=== PATIENT | female | born 1965 | race Caucasian/White ===

== ENCOUNTER 2016-05-22 10:36 | Emergency (ER) | payer BC ==
[~2016-05-22] VITALS: Ht 147.3 cm; Wt 57.0 kg
[~2016-05-22 10:36] MED LIST: GUAISOL PO; HYDR-2768 PO; METO100T PO; MOBI7.5T PO; ZITH250T PO
[2016-05-22 11:02] VITALS: BP 167/109; PULSE 87; RESP 20; TEMP 99.4; O2SAT 95
--- NOTE | 2016-05-22 11:40 | PD ---
HPI Chief Complaint: Respiratory Symptoms Time Seen by Provider: 11:40 Travel History International Travel<30 days: No Contact w/Intl Traveler<30days: No Traveled to known affect area: No History of Present Illness HPI 51-year-old female presents to the emergency Department with complaint of cough and nasal congestion that started yesterday. Denies fever other than the low- grade fever that was taken here in the ER 99.4. Denies nausea, vomiting. Reports cough exacerbations are horrible and she can get him to stop when she starts. Cough is aggravating. Dry cough. Tobacco use daily. History of bronchitis. Denies COPD or asthma. Has tried [id number] cough medications such as Delsym and DayQuil with no relief of symptoms. Reports chest tightness. Denies chest pain, shortness of breath. Denies hemoptysis. Denies ear pain, sore throat. Grandson had flu approximately one week ago. No known allergies. Dr. butler is primary care provider. History of hypertension but doesn't take medications. No other modifying factors or associated signs and symptoms. PFSH Past Medical History Arthritis: Yes Cerebrovascular Accident: Yes Diminished Hearing: No Genitourinary: Yes (HX OF KIDNEY STONES) Hypertension: Yes Kidney Stones: Yes ?: Not Menopausal: Yes Tubal Ligation: Yes Past Surgical History Section: Yes (X 2) Other Surgery: Yes ( LEFT BREAST LUMPECTOMY, CYST REMOVED ON BACK) Social History Alcohol Use: No Tobacco Use: Yes (1/2 PACK PER DAY) Substance Use: No Allergies-Medications (Allergen,Severity, Reaction): Coded Allergies: No Known Allergies (Verified , 05/22/16) Reported Meds & Prescriptions Reported Meds & Active Scripts Active Tessalon Perles (Benzonatate) 100 Mg Cap 100 Mg PO TID PRN Deltasone (Prednisone) 20 Mg Tab 40 Mg PO DAILY 4 Days start 05/23/2016 Proair Hfa 8.5 GM Inh (Albuterol Sulfate) 90 Mcg/Act Aer 2 Puff INH Q4-6H PRN 108 mcg/actuation Review of Systems Except as stated in HPI: all other systems reviewed are Neg Physical Exam Narrative GENERAL: Well-nourished, well-developed female patient, in no acute distress SKIN: Warm and dry. HEAD: Atraumatic. Normocephalic. EYES: Pupils equal and round. No scleral icterus. No injection or drainage. ENT: Mucosa pink and moist. No erythema or exudates. No uvular edema. No uvular , palatal, or tonsillar deviation. Airway patent. Nares without nasal blood, purulent drainage or septal hematoma. EARS: Bilateral pinnae and external canals appear within normal limits. Bilateral tympanic membranes without erythema, dullness or perforation. NECK: Trachea midline. No lymphadenopathy. CARDIOVASCULAR: Regular rate and rhythm. No murmur appreciated. RESPIRATORY: No accessory muscle use. Lungs with Wheezing on auscultation to bilateral lung bases. Breath sounds equal bilaterally. No retractions or tachypnea. No Audible wheezing noted. Frequent dry cough. GASTROINTESTINAL: Abdomen soft, non-tender, nondistended. Hepatic and splenic margins not palpable. Bowel sounds are active 4 quadrants. MUSCULOSKELETAL: No obvious deformities. No clubbing. No cyanosis. No edema. NEUROLOGICAL: Awake and alert. Oriented 3. No obvious cranial nerve deficits. Motor grossly within normal limits. Normal speech. Moves all extremities. 5/5 strength to all extremities. PSYCHIATRIC: Appropriate mood and affect; insight and judgment normal. Data Data Last Documented VS Vital Signs Date Time Temp Pulse Resp B/P Pulse Ox O2 Delivery O2 Flow Rate FiO2 05/22/16 11:02 99.4 87 20 167/109 95 Orders Influenzae A/B Antigen (05/22/16 11:40) Prednisone (Deltasone) (05/22/16 11:45) Albuterol Neb (Albuterol Neb) (05/22/16 11:45) MDM Medical Decision Making Medical Screen Exam Complete: Yes Emergency Medical Condition: Yes Medical Record Reviewed: Yes Differential Diagnosis Acute bronchitis, influenza, pneumonia, viral illness Narrative Course 51-year-old female history of present illness and physical exam consistent with acute bronchitis. Denies fever home. Low-grade fever of 99.4 in the ER. Patient was exposed to influenza about a week ago. Influenza ordered. Patient has mild wheezing to bilateral lung bases. She is in no acute distress and without retractions or tachypnea. Oxygen saturation is 95% on room air. Tobacco use daily. History of bronchitis. She has history of hypertension and does not take medications; denies current symptoms. Albuterol nebulizer and Deltasone ordered. 1220: Influenza negative. Primary inhaler, Deltasone, Tessalon Perles, Nasonex prescribed for home. She reports improvement in symptoms and her cough has decreased while in the ER. Lungs are clear and equal throughout. Patient is medically cleared and stable for discharge. Discussed reasons to return to the emergency department. Instructed patient to follow up with primary care provider. Patient agrees with treatment plan. The patients vital signs are stable and the patient is stable for outpatient follow-up and treatment. Patient discharged home, stable and in no acute distress. Diagnosis Primary Impression: Acute bronchitis Qualified Code: J20.9 - Acute bronchitis, unspecified organism Referrals: Primary Care Physician Patient Instructions: Acute Bronchitis (ED), General Instructions Additional Instructions: Use albuterol inhaler as needed for shortness of breath and wheezing Take oral steroids as prescribed and complete full course avoid asthma triggers such as cigarettes, second hand smoke, dust, known allergens [id number] antihistamines or decongestants as directed and as needed for symptom management Increase fluid intake to prevent dehydration Tylenol or ibuprofen as directed and as needed for fever/pain Sleep with head of bed elevated Ceiling fan off at night while sleeping Hot air humidifier for symptom management Follow-up with primary care provider within 1 to 2 days Return to emergency department immediately with worsening of symptoms Med/Other Pt SpecificInfo: Prescription(s) given Scripts Mometasone Nasal Carrier (Nasonex Nasal Carrier)50 Mcg/Act Naspr2 Carrier EACH NARE DAILY PRN (NASAL CONGESTION) #1 BOTTLE Ref 0 Prov:Macie PennP 05/22/16 Benzonatate (Tessalon Perles)100 Mg Tpt430 Mg PO TID PRN (COUGH) #21 CAP Ref 0 Prov:Macie Penn 05/22/16 Prednisone (Deltasone)20 Mg Tab40 Mg PO DAILY 4 Days Ref 0 start 05/23/2016 Prov:Macie PennP 05/22/16 Albuterol 8.5 GM Inh (Proair Hfa 8.5 GM Inh)90 Mcg/Act Aer2 Puff INH Q4-6H PRN ( SOB/WHEEZING) #1 INHALER Ref 0 108 mcg/actuation Prov:Macie PennP 05/22/16 Disposition: 01 DISCHARGE HOME Condition: Stable Macie Penn May 22, 2016 11:40
[2016-05-22] MEDS ORDERED: RESP: ALBUTEROL 2.5 MG/3 ML NEB (SCH) INH ONE (11:45)
[2016-05-22] MEDS ORDERED: predniSONE 20 MG TAB PO ONE (11:45)
[2016-05-22] MEDS ORDERED: ALBUAER3 INH (11:48)
[2016-05-22] MEDS ORDERED: BENZ100 PO (11:48)
[2016-05-22] MEDS ORDERED: PRED-503 PO (11:48)
[2016-05-22] MEDS ORDERED: MOME17I EACH NARE (12:23)
== END 2016-05-22 12:25 | disposition home or self-care (01) ==
LOC: PHEFT 10:36
DX: J20.9 Acute bronchitis, unspecified (principal); F17.210 Nicotine dependence, cigarettes, uncomplicated
CPT/HCPCS: 87804; 94664; 99283; J7512; J7613

== ENCOUNTER 2016-10-11 03:40 | Emergency (ER) | payer BC ==
[~2016-10-11] VITALS: Ht 147.3 cm; Wt 59.7 kg
[~2016-10-11 03:40] MED LIST changes: +ALBUAER3 INH; +BENZ100 PO; -GUAISOL PO; -HYDR-2768 PO; -METO100T PO; -MOBI7.5T PO; +MOME17I EACH NARE; +PRED-503 PO; -ZITH250T PO
[2016-10-11 03:46] VITALS: PULSE 95; RESP 14; TEMP 98.3; O2SAT 99
[2016-10-11 03:51] VITALS: BP 186/116; PULSE 95; RESP 18; TEMP 98.2; O2SAT 99
[2016-10-11] MEDS ORDERED: OXYMETAZOLINE HCL 0.05% 15 ML NASAL SPRAY NASAL ONE (04:00)
--- NOTE | 2016-10-11 04:13 | PD ---
HPI Chief Complaint: Bleeding Time Seen by Provider: 03:52 Travel History International Travel<30 days: No Contact w/Intl Traveler<30days: No Traveled to known affect area: No History of Present Illness HPI 51yo F with PMH of HTN, CVA presents to the ED with c/o epistaxis that started spontaneously at 3am today. States she had epistaxis yesterday but she was able to stopped it with pressure. Denies any fever, headache, trauma, visual changes, chest pain, sob, n/v, abdominal pain, focal weakness or numbness. Denies being on any anticoagulation. Pt has not taken her metoprolol 50mg BID for 1 year because she has not seen a physician. PFSH Past Medical History Arthritis: Yes Cerebrovascular Accident: Yes Diminished Hearing: No Genitourinary: Yes (HX OF KIDNEY STONES) Hypertension: Yes Kidney Stones: Yes Tetanus Vaccination: < 5 Years Influenza Vaccination: No ?: Not Menopausal: Yes Tubal Ligation: Yes Past Surgical History Section: Yes (X 2) Other Surgery: Yes ( LEFT BREAST LUMPECTOMY, CYST REMOVED ON BACK) Social History Alcohol Use: No Tobacco Use: Yes (1/2 PACK PER DAY) Substance Use: No Allergies-Medications (Allergen,Severity, Reaction): Coded Allergies: No Known Allergies (Verified , 10/11/16) Reported Meds & Prescriptions Reported Meds & Active Scripts Active Metoprolol Tartrate 50 Mg Tab 50 Mg PO BID 14 Days Review of Systems Except as stated in HPI: all other systems reviewed are Neg Physical Exam Narrative GENERAL: 51yo F not in distress. SKIN: Focused skin assessment warm/dry. HEAD: Atraumatic. Normocephalic. EYES: Pupils equal and round. No scleral icterus. No injection or drainage. ENT: Nose: +Small amount of oozing in left anterior kisselbachs plexus. No blood in posterior pharynx. NECK: Trachea midline. No JVD. CARDIOVASCULAR: Regular rate and rhythm. No murmur appreciated. RESPIRATORY: No accessory muscle use. Clear to auscultation. Breath sounds equal bilaterally. GASTROINTESTINAL: Abdomen soft, non-tender, nondistended. MUSCULOSKELETAL: No obvious deformities. No clubbing. No cyanosis. No edema. NEUROLOGICAL: Awake and alert. No obvious cranial nerve deficits. Motor grossly within normal limits. Normal speech. PSYCHIATRIC: Appropriate mood and affect; insight and judgment normal. Data Data Last Documented VS Vital Signs Date Time Temp Pulse Resp B/P Pulse Ox O2 Delivery O2 Flow Rate FiO2 10/11/16 05:09 65 16 169/103 98 10/11/16 04:50 Room Air 10/11/16 03:51 98.2 Orders Oxymetazoline 0.05% [place]al [place] (Afrin 0.0 (10/11/16 04:00) Metoprolol Tartrate (Lopressor) (10/11/16 04:15) Clonidine (Catapres) (10/11/16 05:00) MDM Medical Decision Making Medical Screen Exam Complete: Yes Emergency Medical Condition: Yes Differential Diagnosis Epistaxis vs. uncontrolled HTN secondary to noncompliance Narrative Course 51yo F here for epistaxis. Pt had mild oozing from left anterior nose and 2 afrin sprays were given in the ED. Pt has been observed for an hour with no further epistaxis. No blood in posterior pharynx. Pt was given metoprolol 50mg PO as that was what she is suppose to be on. Pt states she does not like her PMD but has promise to get a new one to help her control her HTN. Pt also given clonidine 0.1mg PO with some improvement of BP to 169/103. No other complaints. Pt has had long standing hypertension and needs to be compliant with her regular medications. Return precautions given. Diagnosis Primary Impression: Epistaxis Additional Impression: Uncontrolled hypertension Patient Instructions: General Instructions Departure Forms: Tests/Procedures Additional Instructions: Please follow up with your PMD in 1- 2 days. Return to the ED if symptoms worsen. Med/Other Pt SpecificInfo: Prescription(s) given Scripts Metoprolol Tartrate 50 Mg Tab50 Mg PO BID 14 Days Ref 0 Prov:Gwen Fernandez 10/11/16 Disposition: 01 DISCHARGE HOME Condition: Stable Gwen Fernandez October 11, 2016 04:13
[2016-10-11] MEDS ORDERED: METOPROLOL TARTRATE 50 MG TAB PO ONE (04:15)
[2016-10-11] MEDS ORDERED: METO50TA PO (04:46)
[2016-10-11 04:50] VITALS: BP 180/113; PULSE 75; RESP 15; O2SAT 98
[2016-10-11] MEDS ORDERED: cloNIDine HCL 0.1 MG TAB PO ONE (05:00)
[2016-10-11 05:09] VITALS: BP 169/103
== END 2016-10-11 05:18 | disposition home or self-care (01) ==
LOC: PHED 03:40
DX: R04.0 Epistaxis (principal); I10 Essential (primary) hypertension; M19.90 Unspecified osteoarthritis, unspecified site; F17.200 Nicotine dependence, unspecified, uncomplicated; Z86.73 Personal history of transient ischemic attack (TIA), and cerebral infarction without residual deficits
CPT/HCPCS: 99283